=== PATIENT | male | born 1945 | race Caucasian/White ===

== ENCOUNTER 2025-01-10 14:09 | Outpatient (CLI) | payer MEDICARE, SELFPAY ==
--- OUTSIDE RECORDS SUMMARY | 2025-01-10 14:18 | XMS_ITS | Continuity of Care Document ---
Author Name [facility] Organization [facility] Care Team Providers Care Crimper Operator Name Role Phone [facility] Unavailable Unavailable Problems Combined list of problems from Department of [facility] and Veterans Affairs facilities. It does not include entries that were removed or entered in error. Problem Status Onset Date Problem Type Date of Resolution Comments Source Carpal tunnel Active Condition Jun Entered By: Ly CHAVEZ Comment: abnl EMG RUE 2015Dec 2015 Entered By: Ly CHAVEZ Comment: never scheduled orthoJun 2016 Entered By: Ly CHAVEZ Comment: referred 07/2016 - then cancelled and declined [facility] Finding of increased blood pressure (SCT [id number]) - Elevated blood pressure nya Active Condition [facility] History of male erectile disorder Active Condition [facility] Injury of ulnar nerve Active Condition [facility] Subclinical hypothyroidism Active Condition [facility] Tubular adenoma of colon Active Condition Aug 05, 2016 Entered By: Ly CHAVEZ Comment: 03/2014 - one small polyp [facility] Routine General Medical Examination at a Health Care Facility * Inactive Condition 07/19/2016 [facility] Allergies, Adverse Reactions, Alerts Combined list of allergies from Department of [facility] and [facility] facilities. It does not include entries that were removed or entered in error. Substance Category Reaction Severity Reaction type Status Date Reported Comments Source TETANUS TOXOID Propensity to adverse reactions to drug (finding) Dizziness active 6 [facility] Immunizations Combined list of available immunizations from the Department of Defense and Veterans Affairs facilities. Immunization Series Date Given Administered By Site Reaction Lot Number CVX Code Drug Ash Kier Boiler Status Comments Source INFLUENZA VACCINE, QUADRIVALENT, ADJUVANTED 2022 [place] CARD RIGHT DELTO ID [id number] 205 complet ed Completed Series, ADMINISTE RED AT [facility] COVID-19 (PFIZER), MRNA, LNP-S, PF, 30 MCG/0.3 ML DOSE 2 2020 208 complet ed PFR; [id number]; 1 [facility] COVID-19 (PFIZER), MRNA, LNP-S, PF, 30 MCG/0.3 ML DOSE 1 2020 208 complet ed PFR; [id number]; 1 [facility] INFLUENZA VACCINE, QUADRIVALENT, ADJUVANTED 2019 205 complet ed HISTORICA L INFORMATI ON - FROM OTHER PROVIDER, Partner:Samantha TURNER.Admin istered by:[facility] [id number].([id number]) .[facility]:[id number] ddress:18 00 [facility] .[id number] 4 Dosage: ML 0.5 [facility] ZOSTER RECOMBINANT 1 2018 187 complet ed [facility] INFLUENZA, INJECTABLE, QUADRIVALENT, PRESERVATIVE FREE 2016 150 complet ed [facility] PNEUMOCOCCAL POLYSACCHARID E PPV23 2016 33 complet ed [facility] INFLUENZA, SEASONAL, INJECTABLE, PRESERVATIVE FREE 2015 140 complet ed [facility] ZOSTER LIVE 2015 121 complet [address] [facility] PNEUMOCOCCAL CONJUGATE PCV 13 2015 133 complet ed [facility] Social History Combined list of available smoking, tobacco, and other social history from Department of Defense and Veterans Affairs facilities. Social History Type Response Date Comment Sourc e Tobacco smoking status NHIS [place]-TOBACCO FORMER USER 08/18/2022 [facility] History of tobacco use VA-TOBACCO QUIT 5 TO < 15 YRS 08/18/2022 [facility] History of tobacco use [place]-TOBACCO QUIT < 1 YEAR 03/16/2019 [facility] History of tobacco use TOBACCO USER OFFE RED MEDS 06/07/2017 [facility] History of tobacco use CURRENT TOBACCO USER 03/27/2016 [facility] History of tobacco use CURRENT TOBACCO USER 02/19/2014 [facility]
--- NOTE | 2025-01-25 15:41 | WPDHOLTEREM ---
Holter/Event Monitor Holter/Event Monitor Date of procedure: 01/10/25 Holter/Event Procedure: 3-7 Day Holter Monitor Indications: Atrial fibrillation Conclusion: 1. 4 days holter monitor on 01/10/25. 2. Underlying rhythm is sinus rhythm. HR range 61-171 bpm; average HR 100 bpm. HR at 171 bpm was on 01/13/25 at 10:10 am. 3. No other supraventricular arrhythmias. 4. There are occasional premature ventricular complexes, rare ventricular couplets, and rare ventricular triplets. No ventricular tachycardia. 5. No significant pauses greater than 3 seconds. 6. No symptoms available for correlation.
== END 2025-01-10 14:10 | disposition home or self-care (01) ==
PROVIDERS: PCP Nurse Practitioner Family; Visit Provider Nurse Practitioner Family
DX: I49.3 Ventricular premature depolarization (principal); I48.91 Unspecified atrial fibrillation
CPT/HCPCS: 93242

== ENCOUNTER 2025-02-26 12:49 | Outpatient (CLI) | payer MEDICARE, SELFPAY ==
--- OUTSIDE RECORDS SUMMARY | 2025-02-26 12:58 | XMS_ITS | Continuity of Care Document ---
Author Name [facility] Organization [facility] Care Team Providers Care Range Aid Name Role Phone [facility] Unavailable Unavailable Problems Combined list of problems from Department of [facility] and Veterans Affairs facilities. It [...] 07/2016 - then cancelled and declined [facility] Finding of increased blood pressure (SCT [id number]) - Elevated blood pressure nya Active Condition [facility] History of male erectile disorder Active Condition [facility] Injury of ulnar nerve Active Condition [facility] Subclinical hypothyroidism Active Condition [facility] Tubular adenoma of colon Active Condition Aug 05, 2016 Entered By: Ly CHAVEZ Comment: 03/2014 - one small polyp [facility] Routine General Medical Examination at a Health Care Facility * Inactive Condition 07/19/2016 [facility] Allergies, Adverse Reactions, Alerts Combined list of allergies from Department of [facility] and [facility] facilities. It does not include entries that were removed or entered in error. Substance Category Reaction Severity Reaction type Status Date Reported Comments Source TETANUS TOXOID Propensity to adverse reactions to drug (finding) Dizziness active 6 [facility] Immunizations Combined list of available immunizations from the Department of [facility] and Veterans Affairs facilities. Immunization Series Date Given Administered By Site Reaction Lot Number CVX Code Drug Senior Service Technician Status Comments Source INFLUENZA VACCINE, QUADRIVALENT, ADJUVANTED 2022 BRENDAN CARD RIGHT DELTO ID [id number] 205 complet ed Completed Series, ADMINISTE RED AT [facility] COVID-19 (PFIZER), MRNA, LNP-S, PF, 30 MCG/0.3 ML DOSE 2 2020 208 complet ed PFR; [id number]; 1 [facility] COVID-19 (PFIZER), MRNA, LNP-S, PF, 30 MCG/0.3 ML DOSE 1 2020 208 complet ed PFR; [id number]; 1 [facility] INFLUENZA VACCINE, QUADRIVALENT, ADJUVANTED 2019 205 complet ed HISTORICA L INFORMATI ON - FROM OTHER PROVIDER, Partner:Samantha TURNER.Admin istered by:[facility] [id number].([id number]) .[facility]:[id number] ddress:18 00 [facility] .[id number] 4 Dosage: ML 0.5 [facility] ZOSTER RECOMBINANT 1 2018 187 complet ed [facility] INFLUENZA, INJECTABLE, QUADRIVALENT, PRESERVATIVE FREE 2016 150 complet ed [facility] PNEUMOCOCCAL POLYSACCHARID E PPV23 2016 33 complet ed [facility] INFLUENZA, SEASONAL, INJECTABLE, PRESERVATIVE FREE 2015 140 complet ed [facility] ZOSTER LIVE 2015 121 complet ed [facility] PNEUMOCOCCAL CONJUGATE PCV 13 2015 133 complet ed [facility] Social History Combined list of available smoking, tobacco, and other social history from Department of Defense and Veterans Affairs facilities. Social History Type Response Date Comment Sourc e Tobacco smoking status NHIS VA-TOBACCO FORMER USER 08/18/2022 [facility] History of tobacco use VA-TOBACCO QUIT 5 TO < 15 YRS 08/18/2022 [facility] History of tobacco use [place]-TOBACCO QUIT < 1 YEAR 03/16/2019 [facility] History of tobacco use TOBACCO USER OFFE RED MEDS 06/07/2017 [facility] History of tobacco use CURRENT TOBACCO USER 03/27/2016 [facility] History of tobacco use CURRENT TOBACCO USER 02/19/2014 [facility]
--- NOTE | 2025-02-26 13:05 | ECHO_ITS ---
Patient Info Name: Buster Hart Age: 79 years : 1945 Gender: Male Ht: 68 in Wt: 165 lbs BSA: 1.90 m2 HR: 108 bpm BP: 136 / 92 mmHg Heart Rhythm: Atrial Fibrillation Technical Quality: Good Exam Date: 02/26/2025 1:11 PM Patient Status: O Admit Date: 02/26/2025 Exam Type: CA echo doppler color flow Complete two-dimensional, color flow and Doppler transthoracic echocardiogram is performed. 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 Complete two-dimensional, color flow and Doppler transthoracic echocardiogram is performed. 2. Left ventricular chamber dimension is normal. 3. Left ventricular systolic function is moderately globally reduced, estimated at 40-45. 4. There is mild concentric increased left ventricular wall thickness. 5. The left ventricular diastolic function is normal. 6. E/e' 9 is minimally elevated. 7. Atrial fibrillation. 8. Left atrial chamber dimension is moderately enlarged. 9. Right atrial chamber dimension is mildly enlarged. 10. There is mild aortic valve regurgitation. 11. There is mild mitral valve regurgitation. 12. There is mild tricuspid valve regurgitation. Left Ventricle E/e' 9 is minimally elevated. Left ventricular chamber dimension is normal. Left ventricular systolic function is moderately globally reduced, estimated at 40-45. There is mild concentric increased left ventricular wall thickness. The left ventricular diastolic function is normal. Atrial fibrillation. Right Ventricle Right ventricular chamber dimension is normal. Right ventricular systolic function is normal. Left Atria Left atrial chamber dimension is moderately enlarged. Right Atria Right atrial chamber dimension is mildly enlarged. Aortic Valve The aortic valve is trileaflet. There is no aortic valve stenosis. There is mild aortic valve regurgitation. Pulmonic Valve There is no pulmonic regurgitation. Mitral Valve There is no mitral valve stenosis. There is mild mitral valve regurgitation. Tricuspid Valve There is mild tricuspid valve regurgitation. No pulmonary hypertension, estimated pulmonary arterial systolic pressure is 37 mmHg. Pericardium/Pleural There is no pericardial effusion. Inferior Vena Cava Normal inferior vena cava with >50% collapse upon inspiration consistent with normal right atrial pressure, 5 mmHg. Aorta The aortic root size at the sinus of Valsalva is normal. Left Ventricular Outflow Tract Name Value Normal LVOT 2D LVOT Diameter 2.0 cm LVOT Doppler LVOT Peak Velocity 67 cm/s LVOT Peak Gradient 1 mmHg LVOT Mean Gradient 1 mmHg LVOT VTI 13 cm LVOT VTI/AV VTI Ratio 0.7 LVOT Stroke Volume 42 ml LVOT CO 2.7 l/min LVOT CI 1.4 l/min/m2 Pulmonic Valve Name Value Normal RVOT Doppler RVOT Peak Velocity 52 cm/s RVOT Peak Gradient 1 mmHg PV Doppler PV Peak Velocity 97 cm/s PV Peak Gradient 4 mmHg Mitral Valve Name Value Normal MV Diastolic Function MV E Peak Velocity 100 cm/s MV A Peak Velocity 1 cm/s MV E/A 122.5 MV Decel Time (PW) 135 ms Tricuspid Valve Name Value Normal TV Regurgitation Doppler TR Peak Velocity 281 cm/s TR Peak Gradient 29 mmHg Estimated PAP/RSVP RA Pressure 5 mmHg <=5 PA Systolic Pressure 37 mmHg <36 RV Systolic Pressure 37 mmHg <36 TV Annular TDI TV Lateral Mayela s' Velocity 13.2 cm/s >=9.5 Aorta Name Value Normal Ascending Aorta Ao Root Diameter (MM) 3.1 cm Ao Root Diam Index (MM) 1.6 cm/m2 Aortic Valve Name Value Normal AV Doppler AV Peak Velocity 108 cm/s AV Peak Gradient 4 mmHg AV Mean Gradient 3 mmHg AV VTI 19 cm AV Area (Cont Eq VTI) 2.1 cm2 >=3.0 AV Area (Cont Eq Bhupinder) 2.0 cm2 AV DI (Bhupinder) 0.62 AV Regurgitation 2D LVOT Area 3.2 cm2 Ventricles Name Value Normal LV Dimensions 2D/MM IVS Diastolic Thickness (2D) 1.2 cm 0.6-1.0 IVS Diastole Thickness (MM) 1.1 cm 0.6-1.0 LVID Diastole (2D) 4.4 cm 4.2-5.8 LVID Diastole (MM) 5.2 cm 4.2-5.8 LVIW Diastolic Thickness (2D) 0.9 cm 0.6-1.0 LVIW Diastolic Thickness (MM) 0.9 cm 0.6-1.0 LVID Systole (2D) 3.3 cm 2.5-4.0 LVID Systole (MM) 3.3 cm 2.5-4.0 LVOT Diameter 2.0 cm LV Mass (2D Cubed) 153.25 g 88.00-224.00 LV Mass Index (2D Cubed) 80 g/m2 49-115 Relative Wall Thickness (2D) 0.41 <=0.42 LV Mass (MM Cubed) 184.74 g 88.00-224.00 LV Mass Index (MM Cubed) 97 g/m2 49-115 Relative Wall Thickness (MM) 0.33 LV Fractional Shortening/Ejection Fraction 2D/MM LV Fractional Shortening (2D) 24 % 25-43 LV Fractional Shortening (MM) 37 % 25-43 LV EF (MM Teichholz) 67 % LV EF (2D Teichholz) 48 % LV Diastolic Volume (4C MOD) 55 ml LV EF (4C MOD) 54 % LV Diastolic Volume (2C MOD) 42 ml LV EF (2C MOD) 40 % LV Diastolic Volume (BP MOD) 48 ml 62-150 LV Diastolic Volume Index (BP MOD) 25 ml/m2 34-74 LV Systolic Volume (BP MOD) 27 ml 21-61 LV Systolic Volume Index (BP MOD) 14 ml/m2 11-31 LV EF (BP MOD) 44 % 52-72 LV Diastolic Length (4C) 7.2 cm LV Systolic Length (4C) 6.7 cm LV Stroke Volume (4C MOD) 30 ml Atria Name Value Normal LA Dimensions LA Dimension (MM) 4.2 cm 3.0-4.0 LA Volume (4C A-L) 79 ml LA Volume (BP A-L) 92 ml RA Dimensions RA Systolic Major [place] Length (4C) 5.7 cm 2.1-2.7 RA Area (4C) 19.6 cm2 <=18.0 Report Signatures
== END 2025-02-26 12:50 | disposition home or self-care (01) ==
LOC: ANHCARD 12:50
PROVIDERS: PCP Nurse Practitioner Family; Visit Provider Internal Medicine Cardiovascular Disease
DX: R93.1 Abnormal findings on diagnostic imaging of heart and coronary circulation (principal); I48.91 Unspecified atrial fibrillation
CPT/HCPCS: 93306

== ENCOUNTER 2025-05-23 10:10 | Outpatient (CLI) | payer MEDICARE, SELFPAY ==
--- NOTE | ~2025-05-23 | NM_ITS ---
EXAMINATION: NM pat stress w perfusion DATE: 05/23/2025 12:18 INDICATION: Other forms of dyspnea. TECHNIQUE: Rest images were obtained following intravenous administration of 10.3 mCi Tc99m tetrofosmin (Myoview). The patient was infused intravenously with Lexiscan (regadenoson). Then, 32.6 mCi Tc99m tetrofosmin (Myoview) was administered intravenously, and stress images were obtained. Data was diasy nstructed into short axis and horizontal and vertical long axis SPECT images. Gated SPECT images were also obtained. COMPARISON: None. FINDINGS: There is no definite reversible or fixed perfusion abnormality to suggest ischemia or infarction. There is global hypokinesis. Left ventricular ejection fraction measures 37%. IMPRESSION: 1. No definite ischemia or infarct. 2. Global hypokinesis with left ventricular ejection fraction measuring 37%. Reviewed, dictated and finalized at location E.
--- NOTE | 2025-05-23 10:32 | EST_ITS ---
Patient Info Name: Buster Hart Age: 80 years : 1945 Gender: Male Ht: 68 in Wt: 160 lbs BSA: 1.87 m2 HR: 104 bpm BP: 149 / 104 mmHg Exam Date: 05/23/2025 10:32 AM Patient Status: O Admit Date: 05/23/2025 Exam Type: CA stress pat w NM A regadenoson stress test was performed. Staff Referring Physician: Ritesh Pink DO Attending Provider: Ritesh Pink DO Exercise Technologist: Ramona Mooney Exercise Physician: Ritesh Pink DO Summary 1. 1. Negative lexiscan stress test for ischemic ST changes by ECG criteria. 2. 2. Baseline hypertension. 3. 3. Nuclear scan to follow and will be reported separately. Please correlate with it. 4. 4. Patient informed of the above results. Protocol: Lexiscan Stress ECG Details Stage: REST Duration (min): 3 min : 45 sec HR (bpm): 105 SBP (mmHg): 149 DBP (mmHg): 104 Stage: REST Duration (min): 14 min : 7 sec HR (bpm): 114 SBP (mmHg): 149 DBP (mmHg): 104 Stage: STAGE 1 Duration (min): 0 min : 59 sec HR (bpm): 113 SBP (mmHg): 159 DBP (mmHg): 107 Stage: RECOVERY Duration (min): 1 min : 0 sec HR (bpm): 112 SBP (mmHg): 159 DBP (mmHg): 107 Stage: RECOVERY Duration (min): 2 min : 0 sec HR (bpm): 117 SBP (mmHg): 159 DBP (mmHg): 107 Stage: RECOVERY Duration (min): 3 min : 0 sec HR (bpm): 121 SBP (mmHg): 155 DBP (mmHg): 101 Stage: RECOVERY Duration (min): 4 min : 0 sec HR (bpm): 121 SBP (mmHg): 155 DBP (mmHg): 101 Stage: RECOVERY Duration (min): 5 min : 0 sec HR (bpm): 117 SBP (mmHg): 152 DBP (mmHg): 100 Stage: RECOVERY Duration (min): 6 min : 0 sec HR (bpm): 116 SBP (mmHg): 152 DBP (mmHg): 100 Stage: RECOVERY Duration (min): 7 min : 0 sec HR (bpm): 123 SBP (mmHg): 139 DBP (mmHg): 97 Stage: RECOVERY Duration (min): 7 min : 20 sec HR (bpm): 118 SBP (mmHg): 139 DBP (mmHg): 97 Rest HR: 114 bpm Peak HR: 131 bpm Rest Sys BP: 149 mmHg Peak Sys BP: 159 mmHg Max Pred HR: 141 bpm % Max Pred HR: 93 % Target HR: 120 bpm Max RPP: 20,829 bpm*mmHg Termination Reason: Completed protocol Cardiac Symptoms: Shortness of breath Total Time: 1 min : 0 sec Rest Alfred BP: 104 mmHg Peak Alfred BP: 107 mmHg Total Dose: 0.4 mg Resting ECG Atrial fibrillation. Stress ECG No ST changes. Arrhythmias No other arrhythmias. Report Signatures
== END 2025-05-23 10:11 | disposition home or self-care (01) ==
LOC: ANHCARD 10:11
PROVIDERS: PCP Nurse Practitioner Family; Visit Provider Internal Medicine Cardiovascular Disease
DX: I50.20 Unspecified systolic (congestive) heart failure (principal)
CPT/HCPCS: 78452; 93017; A9502; J2785